=== PATIENT | female | born 1955 | race Caucasian/White ===

== ENCOUNTER → 2021-01-26 | Outpatient (CLI) | payer OTHER | LOC: HEART CORB 09:00 | DX: R01.1 Cardiac murmur, unspecified (principal); R06.02 Shortness of breath; R60.0 Localized edema | CPT/HCPCS: 93306 ==

== ENCOUNTER → 2021-11-17 | Outpatient (CLI) | payer OTHER | LOC: HEART CORB 09:00 | DX: R07.2 Precordial pain (principal); I11.0 Hypertensive heart disease with heart failure; I50.32 Chronic diastolic (congestive) heart failure; E78.5 Hyperlipidemia, unspecified; E03.9 Hypothyroidism, unspecified; I35.1 Nonrheumatic aortic (valve) insufficiency; M19.90 Unspecified osteoarthritis, unspecified site | CPT/HCPCS: 78452; A9502; J2785 ==

== ENCOUNTER → 2022-02-21 | Outpatient (CLI) | payer OTHER | LOC: SLEEP 11:45 | DX: G47.33 Obstructive sleep apnea (adult) (pediatric) (principal); G47.52 REM sleep behavior disorder | CPT/HCPCS: 95810 ==